=== PATIENT | female | born 1940 | race Caucasian/White ===

== ENCOUNTER 2018-09-02 05:00 | Inpatient (IN) | payer MEDICARE ==
[2018-09-02] MEDS ORDERED: SODIUM CHLORIDE 0.9% 1,000 ML IV STA (05:16)
--- NOTE | 2018-09-02 05:21 | ED ---
Abdominal Pain HPI - General Source: patient Mode of arrival: ambulatory Limitations: no limitations <Arianna Ferrari - Last Filed: 09/02/18 06:54> <Bharat Dumont - Last Filed: 09/02/18 09:35> - General Chief Complaint: Abdominal Pain Stated Complaint: Chest pain Time Seen by Provider: 09/02/18 05:15 - History of Present Illness Initial Comments: Luci is a pleasant 78-year-old female past history of hypertension who presents today for evaluation of right upper quadrant abdominal pain radiating to her back. Patient reports she was in her usual state of health throughout the day yesterday, today she woke with pain in her right upper quadrant. She describes it as feeling as though there is a gas bubble stuck, the pain radiates around to her flank. She has no associated nausea, vomiting, chest pain, shortness of breath, palpitations, lightheadedness. She's had no change in bowel or bladder habits. She does have a history of diverticulitis she's had a colonoscopy approximately 2 years ago. She's never had an EGD or any problems with her upper GI system. She does not have her gallbladder. (Arianna Ferrari) - Related Data Allergies Allergy/AdvReac Type Severity Reaction Status Date / Time No Known Allergies Allergy Verified 09/02/18 07:43 Review of Systems ROS Other: All systems not noted in ROS Statement are negative. <Arianna Ferrari - Last Filed: 09/02/18 06:54> ROS Other: All systems not noted in ROS Statement are negative. <Bharat uDmont - Last Filed: 09/02/18 09:35> ROS Statement: Those systems with pertinent positive or pertinent negative responses have been documented in the HPI. Past Medical History Past Medical History: Hypertension History of Any Multi-Drug Resistant Organisms: None Reported Past Surgical History: Tonsillectomy Past Psychological History: No Psychological Hx Reported Smoking Status: Current every day smoker Past Alcohol Use History: Daily Past Drug Use History: None Reported <Arianna Ferrari - Last Filed: 09/02/18 06:54> General Exam Limitations: no limitations <Arianna Ferrari - Last Filed: 09/02/18 06:54> - General Exam Comments Initial Comments: Physical Exam GENERAL: Patient is well-developed and well-nourished. Patient is nontoxic and well-hydrated and is in no distress. HENT: Normocephalic, Atraumatic. EYES: PERRL, EOMI PULMONARY: Unlabored respirations. No audible rales rhonchi or wheezing was noted. CARDIOVASCULAR: There is a regular rate and rhythm without any murmurs gallops or rubs. ABDOMEN: Soft and nontender with normal bowel sounds. No tenderness to palpation in the right upper quadrant SKIN: Skin is clear with no lesions or rashes and otherwise unremarkable. : Deferred NEUROLOGIC: Patient is alert and oriented x3. Moving all extremities spontaneously MUSCULOSKELETAL: Normal extremities with adequate strength and full range of motion. No lower extremity swelling or edema. No calf tenderness. PSYCHIATRIC: Normal psychiatric evaluation (Arianna Ferrari) Course Vital Signs 09/02/18 09/02/18 09/02/18 05:02 06:03 06:10 Temperature 97.9 F Pulse Rate 56 L 51 L Respiratory 19 Rate Blood Pressure 182/75 168/77 O2 Sat by Pulse 99 98 98 Oximetry 09/02/18 09/02/18 09/02/18 06:20 06:30 07:00 Temperature 97.1 F L Pulse Rate 49 L 55 L 58 L Respiratory 18 Rate Blood Pressure 168/77 168/77 168/77 O2 Sat by Pulse 97 97 96 Oximetry Medical Decision Making - Lab Data Result diagrams: 09/02/18 05:15 09/02/18 05:15 <Arianna Ferrari - Last Filed: 09/02/18 06:54> - Lab Data Result diagrams: 09/02/18 05:15 09/02/18 05:15 <Bharat Dumont - Last Filed: 09/02/18 09:35> - Medical Decision Making The patient was seen and evaluated, history is obtained from the patient Patient with right-sided abdominal pain with radiation to the back, however patient reports pain is not epigastric does not radiate through the center of her body, right upper quadrant is nontender to palpation signs low suspicion for gallbladder pathology I do have a suspicion that the patient may be suffering from a kidney stone (Arianna Ferrari) Patient was signed out to me by previous shift physician. Patient is 78-year-old female presents with chest pain versus abdominal pain. Plan at sign out was to follow-up with labs and imaging. Laboratory evaluation obtained. CBC unremarkable. D-dimer is negative. Metabolic panel is unremarkable. Troponin 0.014. Pending urine studies. CT angios the chest that is negative for PE or any obvious aortic injury. There is however incidental findings of hiatal hernia, punctate hepatic lesions and calcifications to the coronary arteries. History was obtained from patient. Patient has having epigastric/right lower chest pain. This can be interpreted as atypical chest pain. Given findings on CT of coronary calcifications there is concern for early signs of acute coronary syndrome. She'll be admitted for seizure troponins and cardiology consultation. Pending discussion with with on-call hospitalist for physician group. (Bharat Dumont) - Lab Data Lab Results 09/02/18 09/02/18 09/02/18 Range/Units 05:15 05:15 05:15 WBC 10.7 H (3.8-10.6) k/uL RBC 4.62 (3.80-5.40) m/uL Hgb 13.3 (11.4-16.0) gm/dL Hct 42.5 (34.0-46.0) % MCV 91.8 (80.0-100.0) fL MCH 28.8 (25.0-35.0) pg MCHC 31.3 (31.0-37.0) g/dL RDW 13.9 (11.5-15.5) % Plt Count 319 (150-450) k/uL Neutrophils % (Manual) 43 % Lymphocytes % (Manual) 53 % Monocytes % (Manual) 4 % Neutrophils # (Manual) 4.60 (1.3-7.7) k/uL Lymphocytes # (Manual) 5.67 H (1.0-4.8) k/uL Monocytes # (Manual) 0.43 (0-1.0) k/uL Nucleated RBCs 0 (0-0) /100 WBC Manual Slide Review Performed D-Dimer (<0.60) mg/L FEU Sodium 140 (137-145) mmol/L Potassium 4.1 (3.5-5.1) mmol/L Chloride 104 (98-107) mmol/L Carbon Dioxide 27 (22-30) mmol/L Anion Gap 9 mmol/L BUN 24 H (7-17) mg/dL Creatinine 0.86 (0.52-1.04) mg/dL Est GFR (CKD-EPI)AfAm 77 (>60 ml/min/1.73 sqM) Est GFR (CKD-EPI)NonAf 66 (>60 ml/min/1.73 sqM) Glucose 138 H (74-99) mg/dL Plasma Lactic Acid Glynn 1.5 (0.7-2.0) mmol/L Calcium 10.2 (8.4-10.2) mg/dL Total Bilirubin 0.3 (0.2-1.3) mg/dL AST 24 (14-36) U/L ALT 14 (9-52) U/L Alkaline Phosphatase 108 (38-126) U/L Troponin I (0.000-0.034) ng/mL Total Protein 7.3 (6.3-8.2) g/dL Albumin 4.4 (3.5-5.0) g/dL Lipase 126 (23-300) U/L 09/02/18 09/02/18 Range/Units 05:15 05:15 WBC (3.8-10.6) k/uL RBC (3.80-5.40) m/uL Hgb (11.4-16.0) gm/dL Hct (34.0-46.0) % MCV (80.0-100.0) fL MCH (25.0-35.0) pg MCHC (31.0-37.0) g/dL RDW (11.5-15.5) % Plt Count (150-450) k/uL Neutrophils % (Manual) % Lymphocytes % (Manual) % Monocytes % (Manual) % Neutrophils # (Manual) (1.3-7.7) k/uL Lymphocytes # (Manual) (1.0-4.8) k/uL Monocytes # (Manual) (0-1.0) k/uL Nucleated RBCs (0-0) /100 WBC Manual Slide Review D-Dimer 0.35 (<0.60) mg/L FEU Sodium (137-145) mmol/L Potassium (3.5-5.1) mmol/L Chloride (98-107) mmol/L Carbon Dioxide (22-30) mmol/L Anion Gap mmol/L BUN (7-17) mg/dL Creatinine (0.52-1.04) mg/dL Est GFR (CKD-EPI)AfAm (>60 ml/min/1.73 sqM) Est GFR (CKD-EPI)NonAf (>60 ml/min/1.73 sqM) Glucose (74-99) mg/dL Plasma Lactic Acid Glynn (0.7-2.0) mmol/L Calcium (8.4-10.2) mg/dL Total Bilirubin (0.2-1.3) mg/dL AST (14-36) U/L ALT (9-52) U/L Alkaline Phosphatase (38-126) U/L Troponin I 0.014 (0.000-0.034) ng/mL Total Protein (6.3-8.2) g/dL Albumin (3.5-5.0) g/dL Lipase (23-300) U/L Disposition <Arianna Ferrari P - Last Filed: 09/02/18 06:54> Decision Time: 09:35 <Bharat Dumont - Last Filed: 09/02/18 09:35> Clinical Impression: Chest pain Disposition: ADMITTED IP TO THIS HOSP Condition: Fair Referrals: Marck Ramirez DO [Primary Care Provider] - 1-2 days
[2018-09-02 05:43] LABS: HCT 42.5 % (34.0-46.0); HGB 13.3 gm/dL (11.4-16.0); MCH 28.8 pg (25.0-35.0); MCHC 31.3 g/dL (31.0-37.0); MCV 91.8 fL (80.0-100.0); Mean Platelet Volume 6.9; Platelet Count 319 k/uL (150-450); RBC 4.62 m/uL (3.80-5.40); RDW 13.9 % (11.5-15.5); WBC 10.7 k/uL (3.8-10.6)
--- NOTE | 2018-09-02 05:45 | XR ---
EXAM: XR Abdomen, 1 View CLINICAL HISTORY: ITS.REASON XR Reason: abdominal pain TECHNIQUE: Frontal supine view of the abdomen/pelvis. COMPARISON: No relevant prior studies available. FINDINGS: Gastrointestinal tract: Copious amount of stool. No dilation. Bones/joints: No acute fracture. No dislocation. IMPRESSION: No acute findings.
[2018-09-02 06:08] LABS: Albumin 4.4 g/dL (3.5-5.0); Calcium 10.2 mg/dL (8.4-10.2); Potassium 4.1 mmol/L (3.5-5.1); Total Bilirubin 0.3 mg/dL (0.2-1.3); Total Protein 7.3 g/dL (6.3-8.2)
[2018-09-02 06:35] LABS: Lymphocytes # (M) 5.67 k/uL (1.0-4.8); Monocytes # (M) 0.43 k/uL (0-1.0); Neutrophils % (M) 43 %; Nucleated Red Blood Cells 0 /100 WBC (0-0); Total Cells Counted 100
[2018-09-02] MEDS ORDERED: IV FLUID CONTINUATION 400 ML IV ONE (07:19)
[2018-09-02] MEDS ORDERED: MORPHINE SULFATE 4 MG/ML SYRINGE IVP STA (07:40)
--- NOTE | 2018-09-02 07:50 | CT ---
EXAMINATION TYPE: CT chest angio for PE DATE OF EXAM: 09/02/2018 COMPARISON: NONE HISTORY: Chest pain CT DLP: 217.1 mGycm. Automated Exposure Control for Dose Reduction was Utilized. CONTRAST: CTA scan of the thorax is performed without and with IV Contrast, patient injected with 100 ml mL of Isovue 300, pulmonary embolism protocol. MIP Images are created on CT scanner and reviewed. FINDINGS: LUNGS: There is dependent subsegmental atelectasis throughout the lungs. The lungs are grossly clear, there is no concerning parenchymal mass or nodule identified. There is no pleural effusion or pneu mothorax seen. The tracheobronchial tree is patent. MEDIASTINUM: There is satisfactory enhancement of the pulmonary artery and its branches, there is no CT evidence for pulmonary embolism. Mild coronary calcifications are seen, focused within the distal left main coronary artery and proximal left anterior descending coronary artery. There are no greate r than 1 cm hilar or mediastinal lymph nodes. No cardiomegaly or pericardial effusion is seen. OTHER: There are 2 punctate hypoattenuated lesions within the inferior right hepatic lobe that are to o small to accurately characterize on image 153 and 162. These are there is thickening of the adrenal glands, left greater than right, although the adrenal glands maintain and adreniform shape. Therefor e, this finding is likely related to adrenal gland hyperplasia. IMPRESSION: 1. No evidence of pulmonary embolus. 2. Mild coronary calcifications although these are most confluent within the distal left main coronar y artery and proximal left anterior descending coronary artery. 3. Very small hiatal hernia. 4. Too small to accurately characterize punctate hepatic lesions (2 in number). 5. Multifocal dependent subsegmental atelectasis.
[2018-09-02] MEDS ORDERED: ASPIRIN 81 MG PO STA (09:34)
[2018-09-02] MEDS ORDERED: NITROGLYCERIN SL TABS 0.4 MG TAB SUBLINGUAL PRN ×2 (09:35→18:43)
[2018-09-02 09:48] LABS: Appearance,Urine Clear (Clear); Bilirubin,Urine Negative (Negative); Blood,Urine Negative (Negative); Color,Urine Light Yellow; Glucose,Urine (UA) Negative (Negative); Ketones,Urine Negative (Negative); Leukocyte Esterase,Urine Negative (Negative); Nitrite,Urine Negative (Negative); PH, Urine 6.5 (5.0-8.0); Protein,Urine Negative (Negative); Urobilinogen,Urine <2.0 mg/dL (<2.0)
[2018-09-02 10:25] LABS: Specific Gravity,Urine >1.050 (1.001-1.035)
[2018-09-02] MEDS ORDERED: LOSARTAN 25 MG TAB PO SCH (11:30)
[2018-09-02] MEDS ORDERED: LOSARTAN 50 MG TAB PO SCH (12:30)
[2018-09-02 12:44] LABS: Cholesterol 187 mg/dL (<200); HDL Cholesterol 68 mg/dL (40-60); LDL Cholesterol,Calculated 105 mg/dL (0-99); Triglycerides 70 mg/dL (<150)
--- NOTE | 2018-09-02 13:08 | P.CRDCN ---
History of Present Illness History of present illness: This is a pleasant 78-year-old female past medical history significant for hypertension. She denies history of coronary artery disease and does not follow with a thermograph operator for any reason. She presented to the hospital with symptoms of abdominal discomfort and nausea. She states she is feeling a sharp burning sensation in the epigastric region that radiates around to the right upper abdomen into the right upper back in the mid to lower portion. This discomfort waxes and wanes with no specific aggravating or alleviating factor. It is associated with nausea and some mild vomiting. The pain is reproducible to epigastric region with a positive Rosas sign. She denies any symptoms of chest discomfort, dizziness, shortness of breath or palpitations. EKG reveals sinus mechanism with nonspecific ST and mallet these. KUB x-ray with no acute findings. CTA chest is negative for pulmonary embolism with evidence of mild coronary calcifications comply with that in the distal left main and proximal LAD, small hiatal hernia, small punctuate hepatic lesion and multifocal dependent segmental atelectasis. Laboratory data reviewed, WBC 10.7, hemoglobin 13.3, platelets 319, d-dimer 0.35, sodium 140, potassium 4.1, creatinine 0.86, troponin negative 1, LDL 105 and HDL 68. Current cardiac medications include losartan 25 mg daily. At the time of my exam: CONSTITUTIONAL: Denies fever. Denies chills. EYES: Denies blurred vision. Denies vision changes. Denies eye pain. EARS, NOSE, MOUTH & THROAT: Denies headache. Denies sore throat. Denies ear pain. CARDIOVASCULAR: Denies chest pain. Denies shortness of breath. Denies orthopnea. Denies PND. Denies palpitations. RESPIRATORY: Denies cough. GASTROINTESTINAL: Complains of abdominal pain. Denies diarrhea. Denies consti pation. Complains of nausea. Complains of vomiting. MUSCULOSKELETAL: Denies myalgias. INTEGUMENTARY: Denies pruitis. Denies rash. NEUROLOGIC: Denies numbness. Denies tingling. Denies weakness. PSYCHIATRIC: Denies anxiety. Denies depression. ENDOCRINE: Denies fatigue. Denies weight change. Denies polydipsia. Denies polyurina. GENITOURINARY: Denies burning, hematuria or urgency with micturation. HEMATOLOGIC: Denies history of anemia. Denies bleeding. Blood pressure 181/76 heart rate 75 afebrile maintaining oxygen saturation on room air GENERAL: This is a 78-year-old occasion female in no apparent distress at the time of my examination. HEENT: Head is atraumatic, normocephalic. Pupils are equal, round. Sclerae anicteric. Conjunctivae are clear. Mucous membranes of the mouth are moist. Neck is supple. There is no jugular venous distention. No carotid bruit is heard. LUNGS: Clear to auscultation no wheezes, rales or rhonchi. No chest wall tenderness is noted on palpation or with deep breathing. HEART: Regular rate and rhythm without murmurs, rubs or gallops. S1 and S2 heard. ABDOMEN: Soft, mild tenderness noted to the epigastric and right upper quadrant worse with deep palpation. Bowel sounds are heard. No organomegaly noted. EXTREMITIES: No evidence of peripheral edema and no calf tenderness noted. VASCULAR: Radial and dorsalis pedis pulses palpated, no evidence of clubbing. NEUROLOGIC: Patient is awake, alert and oriented x3. ASSESSMENT Epigastric and abdominal discomfort associated with nausea and vomiting Leukocytosis Hypertension PLAN Increase losartan to 50 mg daily, give dose now. Obtain ultrasound of the gallbladder to rule out underlying gallbladder disease. Obtain 2-D echocardiogram and Doppler study to assess cardiac structure and function. Continue to obtain serial cardiac enzymes to rule out an acute coronary event. Will consider stress testing in the morning if there is found to be no gallbladder disease. Further recommendations to follow based upon clinical course. Thank you kindly for this consultation. Nurse Practitioner note has been reviewed, I agree with a documented findings and plan of care. Patient was seen and examined. Past Medical History Past Medical History: GERD/Reflux, Hypertension, Vascular Disorder Additional Past Medical History / Comment(s): Diverticulitis, varicosities, yellow jaundice as an 10 yr old, starting of bilateral cataracts. History of Any Multi-Drug Resistant Organisms: None Reported Past Surgical History: Adenoidectomy, Tonsillectomy Additional Past Surgical History / Comment(s): L leg vascular surgery for varicosities, colonoscopy, cosmetic facial surgery, laser eye surgery for vision correction. Past Anesthesia/Blood Transfusion Reactions: No Reported Reaction Smoking Status: Former smoker - Past Family History Father Family Medical History: CVA/TIA, Myocardial Infarction ([place]) Additional Family Medical History / Comment(s): Father had his first [place] at the age of 74 yrs. Mother Family Medical History: Cancer Additional Family Medical History / Comment(s): Mother of colon cancer at the age of 61 yrs. Medications and Allergies Home Medications Medication Instructions Recorded Confirmed Type Acetaminophen [Tylenol Arthritis] 650 mg PO BID PRN 09/02/18 09/02/18 History Calcium Polycarbophil [Fibercon] 625 mg PO DAILY 09/02/18 09/02/18 History Fexofenadine HCl [Debora Allergy] 180 mg PO DAILY 09/02/18 09/02/18 History Losartan Potassium [Cozaar] 25 mg PO DAILY 09/02/18 09/02/18 History Turmeric Root Extract [Turmeric] 500 mg PO DAILY 09/02/18 09/02/18 History Allergies Allergy/AdvReac Type Severity Reaction Status Date / Time No Known Allergies Allergy Verified 09/02/18 07:43 Physical Exam Vitals: Vital Signs Temp Pulse Pulse Resp BP BP Pulse Ox 09/02/18 10:43 97.5 F L 75 18 181/76 97 09/02/18 10:22 97.1 F L 48 L 20 156/73 96 09/02/18 10:00 44 L 18 149/63 96 09/02/18 09:00 48 L 18 156/68 96 09/02/18 08:00 52 L 18 166/83 96 09/02/18 07:00 97.1 F L 58 L 18 168/77 96 09/02/18 06:30 55 L 168/77 97 09/02/18 06:20 49 L 168/77 97 09/02/18 06:10 51 L 168/77 98 09/02/18 06:03 98 09/02/18 05:02 97.9 F 56 L 19 182/75 99 Intake and Output 09/01/18 09/02/18 09/02/18 22:59 06:59 14:59 Other: Voiding Method Toilet Weight 63.503 kg Results 09/02/18 05:15 09/02/18 05:15 Cardiac Enzymes 09/02/18 09/02/18 Range/Units 05:15 05:15 AST 24 (14-36) U/L Troponin I 0.014 (0.000-0.034) ng/mL Lipids 09/02/18 Range/Units 12:17 Triglycerides 70 (<150) mg/dL Cholesterol 187 (<200) mg/dL HDL Cholesterol 68 H (40-60) mg/dL CBC 09/02/18 Range/Units 05:15 WBC 10.7 H (3.8-10.6) k/uL RBC 4.62 (3.80-5.40) m/uL Hgb 13.3 (11.4-16.0) gm/dL Hct 42.5 (34.0-46.0) % Plt Count 319 (150-450) k/uL Comprehensive Metabolic Panel 09/02/18 Range/Units 05:15 Sodium 140 (137-145) mmol/L Potassium 4.1 (3.5-5.1) mmol/L Chloride 104 (98-107) mmol/L Carbon Dioxide 27 (22-30) mmol/L BUN 24 H (7-17) mg/dL Creatinine 0.86 (0.52-1.04) mg/dL Glucose 138 H (74-99) mg/dL Calcium 10.2 (8.4-10.2) mg/dL AST 24 (14-36) U/L ALT 14 (9-52) U/L Alkaline Phosphatase 108 (38-126) U/L Total Protein 7.3 (6.3-8.2) g/dL Albumin 4.4 (3.5-5.0) g/dL Current Medications Generic Name Dose Route Start Last Admin Trade Name Freq PRN Reason Stop Dose Admin Aspirin 325 mg 09/03/18 09:00 Aspirin PO DAILY [facility] Losartan Potassium 50 mg 09/02/18 12:30 Cozaar PO DAILY [facility] Nitroglycerin 0.4 mg 09/02/18 09:35 Nitrostat SUBLINGUAL Q5M PRN Chest Pain Intake and Output 09/01/18 09/02/18 09/02/18 22:59 06:59 14:59 Other: Voiding Method Toilet Weight 63.503 kg 09/02/18 05:15 09/02/18 05:15
[2018-09-02] MEDS ORDERED: ACETAMINOPHEN TAB 325 MG TAB PO PRN (13:09)
[2018-09-02] MEDS ORDERED: MORPHINE SULFATE 4 MG/ML SYRINGE IVP PRN (13:29)
--- NOTE | 2018-09-02 13:32 | P.HPIM ---
History of Present Illness This is a pleasant 78 years old female with past medical history of hypertension, GERD, diverticulitis,. Patient presents with epigastric/RUQ pain and tenderness of few days duration. Pretty severe about 8-9/10 in severity, crit like achy and constant with no shoulder pain. Yesterday became more severe so she decided to to come to the hospital. Associated with nausea and today she vomited 3 times with no blood in it. Today she had formed bowel movements. No chest pain or dyspnea. On admission she is markedly bradycardic and high 40s. Blood pressure 181/76. She is afebrile. Lap showing mild WBC count of 10.7 K. Rest of CBC is unremarkable. D-dimer is negative at 0.35 which is within normal limits. Creatinine and serum electrolytes are within normal limits as well. There were enzymes not elevated and total bilirubin 0.3. It acid is WNL at 1.5. Urine analysis is negative for infection. Chest CT A, is negative for pulmonary embolism, 2 small punctate lesion. KUB no acute findings. And emergency room patient was started on fluids and pain management as well as aspirin. Review of Systems CONSTITUTIONAL: No fever, no malaise, no fatigue. HEENT: No recent visual problems or hearing problems. Denied any sore throat. CARDIOVASCULAR: No orthopnea, PND, no palpitations, no syncope. PULMONARY: No shortness of breath, no cough, no hemoptysis. GASTROINTESTINAL: No diarrhea, no nausea, no vomiting, no abdominal pain. Normoactive bowel sounds. NEUROLOGICAL: No headaches, no weakness, no numbness. HEMATOLOGICAL: Denies any bleeding or petechiae. GENITOURINARY: Denies any burning micturition, frequency, or urgency. MUSCULOSKELETAL/RHEUMATOLOGICAL: Denies any joint pain, swelling, or any muscle pain. ENDOCRINE: Denies any polyuria or polydipsia. Past Medical History Past Medical History: GERD/Reflux, Hypertension, Vascular Disorder Additional Past Medical History / Comment(s): Diverticulitis, varicosities, yellow jaundice as an 10 yr old, starting of bilateral cataracts. History of Any Multi-Drug Resistant Organisms: None Reported Past Surgical History: Adenoidectomy, Tonsillectomy Additional Past Surgical History / Comment(s): L leg vascular surgery for varicosities, colonoscopy, cosmetic facial surgery, laser eye surgery for vision correction. Past Anesthesia/Blood Transfusion Reactions: No Reported Reaction Smoking Status: Former smoker - Past Family History Father Family Medical History: CVA/TIA, Myocardial Infarction ([place]) Additional Family Medical History / Comment(s): Father had his first [place] at the age of 74 yrs. Mother Family Medical History: Cancer Additional Family Medical History / Comment(s): Mother of colon cancer at the age of 61 yrs. Medications and Allergies Home Medications Medication Instructions Recorded Confirmed Type Acetaminophen [Tylenol Arthritis] 650 mg PO BID PRN 09/02/18 09/02/18 History Calcium Polycarbophil [Fibercon] 625 mg PO DAILY 09/02/18 09/02/18 History Fexofenadine HCl [Debora Allergy] 180 mg PO DAILY 09/02/18 09/02/18 History Losartan Potassium [Cozaar] 25 mg PO DAILY 09/02/18 09/02/18 History Turmeric Root Extract [Turmeric] 500 mg PO DAILY 09/02/18 09/02/18 History Allergies Allergy/AdvReac Type Severity Reaction Status Date / Time No Known Allergies Allergy Verified 09/02/18 07:43 Physical Exam Vitals: Vital Signs Temp Pulse Pulse Resp BP BP Pulse Ox 09/02/18 10:43 97.5 F L 75 18 181/76 97 09/02/18 10:22 97.1 F L 48 L 20 156/73 96 09/02/18 10:00 44 L 18 149/63 96 09/02/18 09:00 48 L 18 156/68 96 09/02/18 08:00 52 L 18 166/83 96 09/02/18 07:00 97.1 F L 58 L 18 168/77 96 09/02/18 06:30 55 L 168/77 97 09/02/18 06:20 49 L 168/77 97 09/02/18 06:10 51 L 168/77 98 09/02/18 06:03 98 09/02/18 05:02 97.9 F 56 L 19 182/75 99 Intake and Output 09/01/18 09/02/18 09/02/18 22:59 06:59 14:59 Other: Voiding Method Toilet Weight 63.503 kg GENERAL: The patient is alert and oriented x3, not in any acute distress. Well developed, well nourished. HEENT: Pupils are round and equally reacting to light. EOMI. No scleral icterus. No conjunctival pallor. Normocephalic, atraumatic. No pharyngeal erythema. No thyromegaly. CARDIOVASCULAR: S1 and S2 present. No murmurs, rubs, or gallops. PULMONARY: Chest is clear to auscultation, no wheezing or crackles. ABDOMEN: Soft, nontender, nondistended, normoactive bowel sounds. No palpable organomegaly. MUSCULOSKELETAL: No joint swelling or deformity. EXTREMITIES: No cyanosis, clubbing, or pedal edema. NEUROLOGICAL: Gross neurological examination did not reveal any focal deficits. SKIN: No rashes. Results CBC & Chem 7: 09/02/18 05:15 09/02/18 05:15 Labs: Abnormal Lab Results - Last 24 Hours (Table) 09/02/18 09/02/18 09/02/18 Range/Units 05:15 05:15 09:35 WBC 10.7 H (3.8-10.6) k/uL Lymphocytes # (Manual) 5.67 H (1.0-4.8) k/uL BUN 24 H (7-17) mg/dL Glucose 138 H (74-99) mg/dL LDL Cholesterol, Calc (0-99) mg/dL HDL Cholesterol (40-60) mg/dL Ur Specific [place] >1.050 H (1.001-1.035) 09/02/18 Range/Units 12:17 WBC (3.8-10.6) k/uL Lymphocytes # (Manual) (1.0-4.8) k/uL BUN (7-17) mg/dL Glucose (74-99) mg/dL LDL Cholesterol, Calc 105 H (0-99) mg/dL HDL Cholesterol 68 H (40-60) mg/dL Ur Specific [place] (1.001-1.035) Thrombosis Risk Factor Assmnt - Choose All That Apply Any of the Below Risk Factors Present?: Yes Each Factor Represents 1 point: Varicose veins Other Risk Factors: Yes Each Risk Factor Represents 3 Points: Age 75 years or older Other congenital or acquired thrombophilia - If yes, enter type in comment: No Thrombosis Risk Factor Assessment Total Risk Factor Score: 4 Thrombosis Risk Factor Assessment Level: Moderate Risk Assessment and Plan Assessment: RUQ pain and tenderness with vomiting History of GERD Hypertension Plan: This is a pleasant 78 years old female who presents with right upper quadrant abdominal pain and tenderness with nausea vomiting. We'll deliver ultrasound. The patient nothing by mouth and pain management. We will check liver ultrasound and hepatitis panel. We Will call GI consult Labs and medication were reviewed.. Continue same treatment. Continue with symptomatic treatment. Resume home medication. Monitor lytes and vitals. DVT and GI prophylaxis. Further recommendations of the clinical course of the patient DVT prophylaxis: Subcutaneous heparin GI Prophylaxis: Protonix Prognosis is guarded
[2018-09-02] MEDS: PANTOPRAZOLE 40 MG/10 ML VIAL IVP SCH (14:32)
[2018-09-02] MEDS ORDERED: METOPROLOL TARTRATE 25 MG TAB PO SCH (14:42)
[2018-09-02] MEDS ORDERED: HEPARIN SODIUM,PORCINE 5,000 UNIT/ML 1 ML VIAL IV ONE (14:44)
[2018-09-02] MEDS ORDERED: HEPARIN SODIUM,PORCINE 5,000 UNIT/ML 1 ML VIAL IV PRN (14:44)
[2018-09-02] MEDS ORDERED: HEPARIN SOD,PORK IN 0.45% NACL 25,000 UNIT in 0.45% NACL 1 250ML.BAG IV SCH (14:45)
[2018-09-02] MEDS ORDERED: METOPROLOL TARTRATE 12.5 MG TAB PO SCH (14:45)
[2018-09-02] MEDS ORDERED: ATORVASTATIN 40 MG TAB PO SCH (15:00)
[2018-09-02] MEDS ORDERED: NITROGLYCERIN OINT 1 INCH/GM PACKET TOPICAL SCH (15:01)
[2018-09-02 15:18] LABS: INR 0.9 (<1.2); Partial Thromboplastin Time 23.1 sec (22.0-30.0); Prothrombin Time 9.8 sec (9.0-12.0)
--- NOTE | 2018-09-02 16:00 | US ---
EXAMINATION TYPE: US gallbladder DATE OF EXAM: 09/02/2018 COMPARISON: NONE CLINICAL HISTORY: abd pain, nausea +murphys sign. Pain RUQ and nausea. EXAM MEASUREMENTS: Liver Length: 13.6 cm Gallbladder Wall: 0.2 cm CBD: 0.4 cm Right Kidney: 12.3 x 4.6 x 3.9 cm Pancreas: Echogenic duct visualized 0.2 cm. Visualized portions of the pancreas are unremarkable. Liver: wnl Gallbladder: wnl Evidence for sonographic Rosas's sign: No CBD: wnl Right Kidney: No hydronephrosis or masses seen There is no ascites. Right kidney shows normal cortical medullary differentiation. IMPRESSION: No significant abnormality evident. There are some limitations the exam.
[2018-09-02] MEDS ORDERED: ONDANSETRON 4 MG/2 ML VIAL IVP PRN (16:11)
[2018-09-02] MEDS ORDERED: SODIUM CHLORIDE 0.9% 1,000 ML in EMPTY BAG 1 BAG IV ONE (16:12)
[2018-09-02] MEDS ORDERED: ALPRAZolam 0.25 MG TAB PO PRN (16:12)
[2018-09-02] MEDS ORDERED: ALPRAZolam 0.5 MG TAB PO PRN (16:12)
[2018-09-02] MEDS ORDERED: HEPARIN SODIUM 1,000 UN/ML (10ML VL) ONE (17:26)
[2018-09-02] MEDS: MIDAZOLAM (PF) 2 MG/2 ML VIAL IV ONE ×2 (17:37→17:39)
[2018-09-02] MEDS ORDERED: LIDOCAINE 1% INJ 10MG/ML (20 ML MDV) SQ ONE (17:38)
[2018-09-02] MEDS: VERAPAMIL SYRINGE (5 MG/10 ML) INTRAARTER ONE ×2 (17:39→18:16)
[2018-09-02] MEDS: NITROGLYCERIN 1000MCG/10ML SYRINGE INTRACORON ONE ×2 (17:47→18:11)
[2018-09-02] MEDS ORDERED: BIVALIRUDIN BOLUS 250 MG/50 ML IV ONE (17:59)
[2018-09-02] MEDS ORDERED: BIVALIRUDIN 250 MG in SODIUM CHLORIDE 0.9% 50 ML IV ONE (17:59)
[2018-09-02] MEDS ORDERED: CLOPIDOGREL 75 MG TAB ONE (18:08)
[2018-09-02] MEDS ORDERED: CLOPIDOGREL 75 MG TAB PO ONE (18:11)
[2018-09-02] MEDS ORDERED: IOPAMIDOL-370 100ML BTL INJ ONE (18:13)
[2018-09-02] MEDS ORDERED: ZOLPIDEM 5 MG TAB PO PRN (18:43)
[2018-09-02] MEDS ORDERED: RX INFO: IV CONTRAST WAS GIVEN 1 EACH MISC MISCELLANE PRN (18:43)
[2018-09-02] MEDS ORDERED: MAG HYDROX/AL HYDROX/SIMETH 30 ML CUP PO PRN (18:43)
[2018-09-02] MEDS ORDERED: ATROPINE SULFATE 0.1 MG/ML 10ML SYRINGE IV PRN (18:43)
[2018-09-02] MEDS ORDERED: HEPARIN SODIUM,PORCINE 5,000 UNIT/ML 1 ML VIAL SQ SCH (21:00)
--- NOTE | 2018-09-02 22:46 | PN ---
PROGRESS NOTE This is a 78-year-old lady who I saw around 1:00 pm today. She had presented to the hospital with abdominal discomfort, nausea, right upper quadrant tenderness. The quality of the pain seemed very atypical. I was concerned more about cholelithiasis, advised an ultrasound of the gallbladder. However, initial troponin was normal. EKG revealed nonspecific inferolateral ST depression. Subsequent troponin around 3:30 or 4 o'clock came back at 1.3, and she continued to have more nausea and also had right- sided lateral chest discomfort as well. At this point, I placed her on full heparin drip, recommended cardiac catheterization and explained to the patient the risks, benefits, options and rationale. I came into the hospital, saw the patient, talked to the , explained to them the rationale, risks, benefits, options and I explained to them that we are concerned about a non-ST elevation NH and proceeded with the procedure expeditiously. The patient was stable hemodynamically. Physical exam was unchanged and there were no significant abnormalities. MMODL / IJN: [id number] /
[2018-09-02] MEDS: SODIUM CHLORIDE 0.9% 1,000 ML IV SCH (22:58)
[2018-09-02] MEDS: METOPROLOL TARTRATE 12.5 MG TAB PO SCH (22:58)
--- NOTE | 2018-09-03 00:05 | CC ---
CARDIAC CATHETERIZATION REPORT DATE OF SERVICE: 09/02/2018. PROCEDURE: 1. Left heart catheterization and coronary angiography. 2. PTCA and stenting of the second obtuse marginal branch with a drug-eluting stent. PERFORMED BY: Dr. Genia Sykes. SEDATION: Moderate conscious sedation time was 42 minutes. Patient was administered Versed. Oxygen saturation, hemodynamics and EKG were monitored closely. CLINICAL INFORMATION: Luci Martin is a 78-year-old lady with history of hypertension who lives part-time in [place] and part-time in [place]. She came to the hospital with abdominal pain, nausea and right upper quadrant tenderness. Had elevated troponin and was advised immediate cardiac catheterization because of ongoing right lateral chest discomfort and nausea. Risks, benefits, options and rationale were explained. PROCEDURE NOTE: Under local anesthesia and strict aseptic precautions, a 6-Turkmen introducer was placed in the right radial artery. Using a standard right Kati catheter and a JL3.5 catheter, I performed coronary angiography and a pigtail catheter was used to check LV pressures. I noted that the patient had a significant 100% occlusion of the second obtuse marginal and proceeded to perform intervention in the same setting. LV pressures were obtained but LV gram was not obtained. CARDIAC CATHETERIZATION FINDINGS: The left ventricle end-diastolic pressure was about 15 mmHg without any gradient across the aortic valve. CORONARY ANGIOGRAPHY FINDINGS: RIGHT CORONARY ARTERY: This is a very dominant vessel that has an ostial lesion of at least 55% or so. There is a damping when I cannulated the right coronary artery, which did not improve after nitroglycerin. There was no reflux. The mid segment of this vessel also has a long 40% lesion. Ostium has a 50% lesion and distally it is a good caliber vessel which bifurcates into PDA and PLV, both of which supply a sizable amount of myocardium. No significant disease is noted in the branches. LEFT MAIN CORONARY ARTERY: This is a short, patent disease-free vessel that bifurcates into LAD and circumflex. There is no significant disease in the left main coronary artery. LEFT ANTERIOR DESCENDING CORONARY ARTERY: This is a fair caliber vessel. The proximal one third of the vessel has about a 40% to 50% narrowing which is best seen in the cranial projection. There is no critical lesion, but there is at least a 40% to 50% stenosis involving the proximal one third of the vessel. The caliber of the LAD then improves and it is tortuous and runs towards the apex, gives off fairly good size diagonal branch in the distal one fourth and then runs all the way to the apex in a small caliber fashion. LAD therefore has a 40 to 50% proximal one third diseased segment. LEFT POSTERIOR CIRCUMFLEX CORONARY ARTERY: Technically a nondominant vessel that gives off a high first obtuse marginal which has minor irregularities. Second obtuse marginal is totally occluded, 100%, appears to be the culprit vessel. The continuation of circumflex is free of significant disease. LV-gram was not performed and LV pressures were checked. FINAL IMPRESSION: This patient has a total occlusion of 2nd obtuse marginal which is the culprit vessel. The dominant RCA has a 50% ostial lesion in the proximal one third of RCA has a 40% lesion. The LAD is the proximal one third 40-50 percent lesion. Filling pressures are mildly elevated at 15 mmHg without any gradient across aortic valve. RECOMMENDATIONS: I recommended PCI of the second obtuse marginal and proceeded to perform this in the same setting expeditiously. PCI PROCEDURE DETAILS: A JL3.5 guide catheter was used to cannulate the left coronary artery. A run-through wire was used to cross the lesion. Predilatation was performed with a 2.5 caliber 12 mm Trek balloon. I then deployed a 12 mm long 2.5 caliber Xience stent at 12 atmospheres. Patient had chest pain, but no significant EKG changes. Excellent angiographic result without complication was achieved. This was a fair caliber, fair distribution vessel. The patient's EKG did not show any significant changes, but she had resolution of her discomfort in the chest. Her nausea also disappeared almost completely. Excellent angiographic result without complication was achieved. Patient received 600 mg of Plavix. She also received Angiomax bolus and infusion. The sheath was taken out and TR band applied as per protocol with good hemostasis. Saturation in the fingers of the right hand was 92%. Excellent angiographic result without complication was achieved. Findings were discussed with the patient and family. MMODL / IJN: [id number] /
[2018-09-03] MEDS ORDERED: PANTOPRAZOLE 40 MG TABLET PO SCH (07:30)
[2018-09-03] MEDS: SODIUM CHLORIDE 0.9% 1,000 ML IV SCH (07:30)
[2018-09-03 07:37] LABS: Basophils # (A) 0.1 k/uL (0-0.2); Basophils % (A) 1 %; Eosinophils # (A) 0.1 k/uL (0-0.7); Eosinophils % (A) 1 %; HCT 39.6 % (34.0-46.0); HGB 12.3 gm/dL (11.4-16.0); Lymphocytes # (A) 4.6 k/uL (1.0-4.8); Lymphocytes % (A) 38 %; MCH 28.8 pg (25.0-35.0); MCHC 31.1 g/dL (31.0-37.0); MCV 92.5 fL (80.0-100.0); Mean Platelet Volume 6.7; Monocytes # (A) 0.6 k/uL (0-1.0); Monocytes % (A) 5 %; Neutrophils # (A) 6.4 k/uL (1.3-7.7); Neutrophils % (A) 53 %; Platelet Count 312 k/uL (150-450); RBC 4.28 m/uL (3.80-5.40)
[2018-09-03 07:56] LABS: Calcium 9.1 mg/dL (8.4-10.2); Potassium 4.5 mmol/L (3.5-5.1)
[2018-09-03] MEDS: METOPROLOL TARTRATE 12.5 MG TAB PO SCH ×2 (08:17→20:20)
[2018-09-03] MEDS: PANTOPRAZOLE 40 MG/10 ML VIAL IVP SCH (08:17)
[2018-09-03] MEDS: ASPIRIN 81 MG PO SCH (08:17)
[2018-09-03] MEDS: CLOPIDOGREL 75 MG TAB PO SCH (08:17)
--- NOTE | 2018-09-03 08:39 | PN ---
PROGRESS NOTE This is a 78-year-old lady who is admitted to hospital with non ST-segment elevation UT and underwent cardiac catheterization and angioplasty of a totally occluded OM branch. This morning, patient is comfortable at rest and is free of symptoms. Ambulating without any problems. Her peak troponin was 14.8. PHYSICAL EXAM: This morning, she is comfortable at rest. Vital signs are stable. There is no jugular venous distention. Chest exam reveals good air entry bilaterally. Heart exam reveals first and second heart sounds. No gallop. Exam of extremities did not reveal any edema. Radial artery access site appears normal. LABS: Show a hemoglobin of 12.3, platelet count is 312. Potassium is 4.5. Troponin is 14.8. Current medications include aspirin, Plavix, Lipitor, Cozaar, and Lopressor. ASSESSMENT: Acute non ST-segment elevation myocardial infarction, status post catheterization and angioplasty of a totally occluded OM branch. PLAN: Patient is doing well this morning. Will ambulate her and possible discharge home tomorrow. MMODL / IJN: [id number] /
[2018-09-03] MEDS ORDERED: ASPIRIN 325 MG TAB PO SCH (09:00)
--- NOTE | 2018-09-03 10:26 | ECHOF ---
Referral Reason:cp MEASUREMENTS -------- HEIGHT: 162.6 cm WEIGHT: 63.5 kg BP: RVIDd: 2.6 cm (< 3.3) IVSd: 1.1 cm (0.6 - 1.1) LVIDd: 4.2 cm (3.9 - 5.3) LVPWd: 1.1 cm (0.6 - 1.1) IVSs: 1.3 cm LVIDs: 2.8 cm LVPWs: 1.3 cm LA Diam: 3.5 cm (2.7 - 3.8) LAESV Index (A-L): 24.34 ml/m MV EXCURSION: 17.202 mm (> 18.000) MV EF SLOPE: 80 mm/s (70 - 150) EPSS: 0.3 cm MV E Stefan: 1.22 m/s MV DecT: 189 ms MV A Stefan: 0.93 m/s MV E/A Ratio: 1.31 RAP: 5.00 mmHg RVSP: 38.30 mmHg FINDINGS -------- Sinus rhythm. This was a technically good study. The left ventricular size is normal. There is borderline concentric left ventricular hypertrophy. Overall left ventricular systolic function is normal with, an EF between 60 - 65 %. The right ventricle is normal in size. Normal LA size by volume 22+/-6 ml/m2. The right atrium is normal in size. Interatrial and interventricular septum intact. There is mild aortic valve sclerosis. The mitral valve leaflets are mildly thickened. Mild mitral annular calcification present. Mild m itral regurgitation is present. Mild tricuspid regurgitation present. There is mild pulmonary hypertension. The right ventricular systolic pressure, as measured by Doppler, is 38.30mmHg. Trace/mild (physiologic) pulmonic regurgitation. The aortic root size is normal. Normal inferior vena cava with less than 50% inspiratory collapse consistent with estimated right atr ial pressure of 15 mmHg. There is no pericardial effusion. CONCLUSIONS -------- 1. Sinus rhythm. 2. This was a technically good study. 3. The left ventricular size is normal. 4. There is borderline concentric left ventricular hypertrophy. 5. Overall left ventricular systolic function is normal with, an EF between 60 - 65 %. 6. The right ventricle is normal in size. 7. Normal LA size by volume 22+/-6 ml/m2. 8. The right atrium is normal in size. 9. Interatrial and interventricular septum intact. 10. There is mild aortic valve sclerosis. 11. The mitral valve leaflets are mildly thickened. 12. Mild mitral annular calcification present. 13. Mild mitral regurgitation is present. 14. Mild tricuspid regurgitation present. 15. There is mild pulmonary hypertension. 16. The right ventricular systolic pressure, as measured by Doppler, is 38.30mmHg. 17. Trace/mild (physiologic) pulmonic regurgitation. 18. The aortic root size is normal. 19. Normal inferior vena cava with less than 50% inspiratory collapse consistent with estimated right atrial pressure of 15 mmHg. 20. There is no pericardial effusion. PIGMENT PUSHER: Alena Stark RDCS
[2018-09-03 14:41] VITALS: BMI 23.9
[2018-09-03] MEDS ORDERED: LOSARTAN 25 MG TAB PO SCH (21:00)
[2018-09-03] MEDS ORDERED: ATORVASTATIN 80 MG TAB PO SCH (21:00)
--- NOTE | 2018-09-03 21:06 | P.PN ---
Subjective This is a pleasant 78 years old female with past medical history of hypertension, GERD, diverticulitis,. Patient presents with epigastric/RUQ pain a nd tenderness of few days duration. Pretty severe about 8-9/10 in severity, crit like achy and constant with no shoulder pain. Yesterday became more severe so she decided to to come to the hospital. Associated with nausea and today she vomited 3 times with no blood in it. Today she had formed bowel movements. No chest pain or dyspnea. On admission she is markedly bradycardic and high 40s. Blood pressure 181/76. She is afebrile. Lap showing mild WBC count of 10.7 K. Rest of CBC is unrem arkable. D-dimer is negative at 0.35 which is within normal limits. Creatinine and serum electrolytes are within normal limits as well. There were enzymes not elevated and total bilirubin 0.3. It acid is WNL at 1.5. Urine analysis is negative for infection. Chest CT A, is negative for pulmonary embolism, 2 small punctate lesion. KUB no acute findings. And emergency room patient was started on fluids and pain management as well as aspirin. 09/03/2018 Patient Yesterday she had elevated troponin up to 1.3. With normal liver ultrasound. Eventually patient went to cardiac cath with stents was placed in the second obtuse marginal branch. This morning patient was happy with the result . No chest pain or dyspnea. No other new complaints. Hemodynamically stable. Lap showing mild leukocytosis of 12.0, probably from her heart attack. Hepatitis panel was negative. Objective - Vital Signs Vital signs: Vital Signs Temp 98.3 F 09/03/18 04:00 Pulse 73 09/03/18 04:00 Resp 18 09/03/18 04:00 BP 128/77 09/03/18 04:00 Pulse Ox 92 L 09/03/18 04:00 Intake & Output 09/02/18 09/03/18 09/03/18 18:59 06:59 18:59 Intake Total 120 Balance 120 Weight 63.2 kg Intake: IV 120 Other: Voiding Method Toilet Toilet # Voids 1 - Exam GENERAL: The patient is alert and oriented x3, not in any acute distress. Well developed, well nourished. HEENT: Pupils are round and equally reacting to light. EOMI. No scleral icterus. No conjunctival pallor. Normocephalic, atraumatic. No pharyngeal erythema. No thyromegaly. CARDIOVASCULAR: S1 and S2 present. No murmurs, rubs, or gallops. PULMONARY: Chest is clear to auscultation, no wheezing or crackles. ABDOMEN: Soft, nontender, nondistended, normoactive bowel sounds. No palpable organomegaly. MUSCULOSKELETAL: No joint swelling or deformity. EXTREMITIES: No cyanosis, clubbing, or pedal edema. NEUROLOGICAL: Gross neurological examination did not reveal any focal deficits. SKIN: No rashes. - Labs CBC & Chem 7: 09/03/18 06:08 09/02/18 05:15 Labs: Abnormal Lab Results - Last 24 Hours (Table) 09/02/18 09/02/18 09/02/18 Range/Units 09:35 12:17 12:17 WBC (3.8-10.6) k/uL APTT (22.0-30.0) sec Troponin I 1.380 H* (0.000-0.034) ng/mL LDL Cholesterol, Calc 105 H (0-99) mg/dL HDL Cholesterol 68 H (40-60) mg/dL Ur Specific [place] >1.050 H (1.001-1.035) 09/02/18 09/02/18 09/03/18 Range/Units 21:04 21:04 06:08 WBC 12.0 H (3.8-10.6) k/uL APTT 31.5 H (22.0-30.0) sec Troponin I 14.900 H* (0.000-0.034) ng/mL LDL Cholesterol, Calc (0-99) mg/dL HDL Cholesterol (40-60) mg/dL Ur Specific [place] (1.001-1.035) Assessment and Plan Assessment: acute coronary syndrome with stenting of the second obtuse marginal branch History of GERD Hypertension Plan: This is a pleasant 78 years old female who presents with acute coronary syndrome. She is status post cardiac cath on 09/02/2018 with stenting of the second obtuse branch. Continue With aspirin and Plavix. Also with Lipitor. Labs and medication were reviewed.. Continue same treatment. Continue with symptomatic treatment. Resume home medication. Monitor lytes and vitals. DVT and GI prophylaxis. Further recommendations of the clinical course of the patient
[2018-09-03 21:20] VITALS: RESP 16
[2018-09-04 07:37] LABS: Basophils # (A) 0.1 k/uL (0-0.2); Basophils % (A) 1 %; Eosinophils # (A) 0.2 k/uL (0-0.7); Eosinophils % (A) 2 %; HCT 38.6 % (34.0-46.0); HGB 12.1 gm/dL (11.4-16.0); Lymphocytes # (A) 3.7 k/uL (1.0-4.8); Lymphocytes % (A) 40 %; MCH 28.8 pg (25.0-35.0); MCHC 31.4 g/dL (31.0-37.0); Mean Platelet Volume 6.8; Monocytes # (A) 0.6 k/uL (0-1.0); Monocytes % (A) 7 %; Neutrophils # (A) 4.5 k/uL (1.3-7.7); Neutrophils % (A) 48 %; Platelet Count 275 k/uL (150-450); RBC 4.19 m/uL (3.80-5.40); WBC 9.3 k/uL (3.8-10.6)
[2018-09-04] MEDS: PANTOPRAZOLE 40 MG/10 ML VIAL IVP SCH (08:35)
[2018-09-04] MEDS: CLOPIDOGREL 75 MG TAB PO SCH (08:35)
[2018-09-04] MEDS: METOPROLOL TARTRATE 12.5 MG TAB PO SCH (08:35)
[2018-09-04] MEDS: ASPIRIN 81 MG PO SCH (08:36)
[2018-09-04] MEDS ORDERED: HEPARIN SODIUM,PORCINE 5,000 UNIT/ML 1 ML VIAL SQ SCH (09:00)
--- NOTE | 2018-09-04 10:48 | P.PN ---
Subjective Progress Note Date: 09/04/18 This is a pleasant 78 year old female who presented to the hospital with a non-ST elevation myocardial infarction. She does have past medical history significant for hypertension and hyperlipidemia. She was taken to the cardiac catheterization lab where she underwent PTCA and stenting of the second obtuse marginal branch. Patient was seen and examined this morning, denied any chest pain or difficulty in breathing, she's been up ambulating in the hallway without any difficulty. Blood pressure 128/70 with a heart rate in the 70s, 98% on room air. White blood cell count 9.3, hemoglobin 12.1, platelet count 275. Echocardiogram with Doppler study was performed which revealed an ejection fraction of 60-65%. Objective - Vital Signs Vital signs: Vital Signs Temp 97.8 F 09/04/18 08:37 Pulse 71 09/04/18 08:37 Resp 16 09/04/18 08:37 BP 129/71 09/04/18 08:37 Pulse Ox 98 09/04/18 08:37 Intake & Output 09/03/18 09/04/18 09/04/18 18:59 06:59 18:59 Intake Total 1080 480 Output Total 850 400 Balance 230 80 Weight 63.2 kg 64.5 kg Intake: Oral 1080 480 Output: Urine 850 400 Other: Voiding Method Toilet Toilet Toilet # Voids 1 2 1 - Exam PHYSICAL EXAMINATION: GENERAL: 78 year old female in no acute distress at the time of my examination HEENT: Head is atraumatic, normocephalic. Pupils equal, round. Sclera anicteric. Conjunctiva are clear. Mucous membranes of the mouth are moist. Neck is supple. There is no elevated jugular venous pressure. No carotid bruit is heard. HEART EXAMINATION: Heart S1, S2 normal. No murmur or gallop heard. CHEST EXAMINATION: Lungs are clear to auscultation and precussion. No chest wall tenderness is noted on palpation or with deep breathing. ABDOMEN: Soft, nontender. Bowel sounds are heard. No organomegaly noted. EXTREMITIES: 2+ peripheral pulses with no evidence of peripheral edema and no calf tenderness noted. Right radial site clean and dry, good distal pulse. NEUROLOGIC patient is awake, alert and oriented X3. . - Labs CBC & Chem 7: 09/04/18 06:27 07/26/19 06:08 Assessment and Plan Plan: Assessment and plan #1 non-ST elevation VA status post angioplasty and stenting of the second OM #2 hypertension #3 hyperlipidemia Plan From cardiology's perspective, patient may be able to be discharged home today. Follow-up appointment with Dr. Cinthya Sykes as an outpatient. Discharge medications include aspirin 81 mg daily, Lipitor 80 mg daily, Plavix 75 mg daily, losartan 25 mg daily, metoprolol 12-1/2 mg one tablet by mouth twice a day, and sublingual nitroglycerin as needed for chest pain. DNP note has been reviewed, I agree with a documented findings and plan of care. Patient was seen and examined.
--- NOTE | 2018-09-04 11:16 | P.DS ---
Providers Date of admission: 09/02/18 18:43 Attending physician: Jeremiah Shea Consults: 09/02/18 09:35 Consult Physician Urgent Consulting Provider: Anita Barragan Consult Reason/Comments: atypical chest pain Do you want consulting provider notified?: Yes 09/02/18 18:43 Consult Physician Routine Consulting Provider: [facility] Consult Reason/Comments: Post Interventional patient Do you want consulting provider notified?: Already Contacted Primary care physician: [facility] Course: Diagnoses: acute coronary syndrome with stenting of the second obtuse marginal branch History of GERD Hypertension Hospital course: This is a pleasant 78 years old female with past medical history of hypertension, GERD, diverticulitis,. Patient presents with epigastric/RUQ pain and tenderness of few days duration. Liver enzymes and liver workup was negative including negative ultrasound and acute hepatitis panel. Chest CT A, is negative for pulmonary embolism. However patient has trended up troponin to 1.3. Patient underwent cardiac cath and found to have a blocked coronary arteries, she status post stenting of the second obtuse marginal branch. And patient was started on dual antiplatelet therapy with aspirin and Plavix. Patient showed interval improvement in her symptoms are completely resolved, she was completely asymptomatic on the day of discharge with no chest pain, denies dyspnea, denies epigastric or other abdominal pain or tenderness. She remains hemodynamically stable. And she was cleared by cardiology team for discharge. Patient was happy with the results and wants to go home soon. Problems and management plan were discussed with the patient and he verbalized understanding and acceptance Patient was found stable and can be discharged home however he needs follow-up as an outpatient area patient agrees with the appointments and timing as stated she will follow up. prescription was provided by cardiology team. Performance of compliance with therapy is explained to the patient and she verbalized understanding and acceptance Gen: patient is a AAOx3, no distress CVS: S1-S2, RRR, no murmur Lungs: B/L CTA, no wheezing Abdomen: soft, no distention, no tenderness, positive bowel sounds Extremity: no leg edema or induration Time spent more than 35 minutes Patient Condition at Discharge: Fair Plan - Discharge Summary Discharge Rx Participant: No New Discharge Prescriptions: New Aspirin 81 mg PO DAILY chew Losartan [Cozaar] 25 mg PO HS tab Atorvastatin [Lipitor] 80 mg PO HS tab Metoprolol Tartrate [Lopressor] 12.5 mg PO BID tab Mag Hydrox/Al Hydrox/Simeth [Maalox] 30 ml PO Q4HR PRN cup PRN Reason: Heartburn Nitroglycerin Sl Tabs [Nitrostat] 0.4 mg SUBLINGUAL Q5M PRN #25 tab PRN Reason: Chest Pain Nitroglycerin Sl Tabs [Nitrostat] 0.4 mg SUBLINGUAL Q5M PRN tab PRN Reason: Chest Pain Clopidogrel [Plavix] 75 mg PO DAILY #0 tab Continue Losartan Potassium [Cozaar] 25 mg PO DAILY Fexofenadine HCl [Debora Allergy] 180 mg PO DAILY Calcium Polycarbophil [Fibercon] 625 mg PO DAILY Acetaminophen [Tylenol Arthritis] 650 mg PO BID PRN PRN Reason: Pain Turmeric Root Extract [Turmeric] 500 mg PO DAILY Discharge Medication List Acetaminophen [Tylenol Arthritis] 650 mg PO BID PRN 09/02/18 [History] Calcium Polycarbophil [Fibercon] 625 mg PO DAILY 09/02/18 [History] Fexofenadine HCl [Debora Allergy] 180 mg PO DAILY 09/02/18 [History] Losartan Potassium [Cozaar] 25 mg PO DAILY 09/02/18 [History] Turmeric Root Extract [Turmeric] 500 mg PO DAILY 09/02/18 [History] Aspirin 81 mg PO DAILY chew 09/03/18 [Rx] Atorvastatin [Lipitor] 80 mg PO HS tab 09/03/18 [Rx] Clopidogrel [Plavix] 75 mg PO DAILY #0 tab 09/03/18 [Rx] Losartan [Cozaar] 25 mg PO HS tab 09/03/18 [Rx] Mag Hydrox/Al Hydrox/Simeth [Maalox] 30 ml PO Q4HR PRN cup 09/03/18 [Rx] Metoprolol Tartrate [Lopressor] 12.5 mg PO BID tab 09/03/18 [Rx] Nitroglycerin Sl Tabs [Nitrostat] 0.4 mg SUBLINGUAL Q5M PRN tab 09/03/18 [Rx] Nitroglycerin Sl Tabs [Nitrostat] 0.4 mg SUBLINGUAL Q5M PRN #25 tab 09/03/18 [Rx] Follow up Appointment(s)/Referral(s): Fatou Sykes MD [STAFF PHYSICIAN] - 09/10/18 10:30 am (Thursday with [facility] [facility]) Marck Ramirez DO [Primary Care Provider] - 09/09/18 10:00 am ( with Shahnaz at [facility]) Patient Instructions/Handouts: *Surgery [facility] - After Heart Catheterization - Ear Muff Assembler Instructions, Left Heart Catheterization (DC)
[2018-09-04 11:29] VITALS: BP 123/58; PULSE 58; TEMP 97.3
--- NOTE | 2018-09-08 01:04 | CDI ---
Documentation Clarification Form Date: 09/08/18 From: Víctor Sykes Phone: call to [phone] Admit Date: 09/02/2018 6:43:00 PM Patient Name: Luci Martin Visit Number: [id number] Discharge Date: 09/04/2018 11:59:00 AM ATTENTION: The Clinical Documentation Specialists (CDI) and [facility] Coding Staff appreciate your assistance in clarifying documentation. Please respond to the clarification below the line at the bottom and electronically sign. The CDI & [facility] Coding staff will review the response and follow-up if needed. Please note: Queries are made part of the Legal Health Record. If you have any questions, please contact the author of this message via ITS. Dr. Luke Mandel, Myocardial infarction is documented in the 09/03, 09/[address] Ramon littlejohn. Patient History/Risk Factors: CAD, STENT placed. Clinical Indicators: Troponin: 0.014, 1.3. EKG Results:revealed nonspecific inferolateral ST depression Treatment: Heparin Drip,Underwent CATH placed DESIREE stent. Consult: Dr. Onel Lainez, Dr. Ramon Littlejohn. In order to capture the severity of condition and necessary documentation specificity, please clarify: Type of Infarction: STEMI NSTEMI Unable to determine Other Condition, please specify NSTEMI MTDD
== END 2018-09-04 11:59 | disposition home or self-care (01) | DRG 247 ==
LOC: EC 05:00 → 1SOBS 09:35 → 3SCARD 18:30 → OBSVTOIN 18:43
PROVIDERS: ADMIT Hospitalist; ATTEND Hospitalist
PROC: 4A023N7 Measurement of Cardiac Sampling and Pressure, Left Heart, Percutaneous Approach (ICD-10-PCS; principal; 2018-09-02 17:19)
PROC: B2111ZZ Fluoroscopy of Multiple Coronary Arteries using Low Osmolar Contrast (ICD-10-PCS; principal; 2018-09-02 17:19)
PROC: 027034Z Dilation of Coronary Artery, One Artery with Drug-eluting Intraluminal Device, Percutaneous Approach (ICD-10-PCS; principal; 2018-09-02 17:19)
DX: I21.4 Non-ST elevation (NSTEMI) myocardial infarction (principal); I25.10 Atherosclerotic heart disease of native coronary artery without angina pectoris; I10 Essential (primary) hypertension; E78.5 Hyperlipidemia, unspecified; F17.200 Nicotine dependence, unspecified, uncomplicated; K21.9 Gastro-esophageal reflux disease without esophagitis; D72.829 Elevated white blood cell count, unspecified; K44.9 Diaphragmatic hernia without obstruction or gangrene; Z79.899 Other long term (current) drug therapy; Z80.0 Family history of malignant neoplasm of digestive organs; Z82.49 Family history of ischemic heart disease and other diseases of the circulatory system; Z90.89 Acquired absence of other organs; Z98.42 Cataract extraction status, left eye; Z98.41 Cataract extraction status, right eye; Z98.890 Other specified postprocedural states
CPT/HCPCS: 36415; 71275; 74018; 76705; 80048; 80053; 80061; 80074; 81003; 83605; 83690; 84484; 85025; 85379; 85610; 85730; 93005; 93306; 93458; 94760; 96361; 96374; 99285; C1874